=== PATIENT | female | born 1965 ===

== ENCOUNTER 2017-11-26 11:47 | Emergency (ER) | payer OTHER ==
[2017-11-26 11:52] VITALS: BMI 25.7
--- NOTE | 2017-11-26 12:15 | C.PDOC ---
History Of Present Illness 52 y/o female with history of Anemia and hysterectomy presents to ED with c/o suprapubic abdominal pain for 1 week worse on left side associated with 2 days of dysuria. Patient states pain worsens after urination. Patient denies vaginal discharge, vaginal bleeding, fever, chills, nausea, vomiting or any other complaints at this time. Time Seen by Provider: 11/26/17 12:06 Chief Complaint (Nursing): Abdominal Pain History Per: Patient History/Exam Limitations: no limitations Onset/Duration Of Symptoms: Days Current Symptoms Are (Timing): Still Present Past Medical History Reviewed: Historical Data, Nursing Documentation, Vital Signs Vital Signs: Last Vital Signs Temp 98.8 F 11/26/17 12:50 Pulse 80 11/26/17 12:50 Resp 18 11/26/17 12:50 BP 158/82 H 11/26/17 12:50 Pulse Ox 100 11/26/17 12:50 - Medical History PMH: No Chronic Diseases Surgical History: No Surg Hx Family History: States: No Known Family Hx Review Of Systems Constitutional: Negative for: Fever, Chills Gastrointestinal: Positive for: Abdominal Pain. Negative for: Nausea, Vomiting Genitourinary: Positive for: Dysuria. Negative for: Vaginal Discharge, Vaginal Bleeding Musculoskeletal: Negative for: Back Pain Skin: Negative for: Rash Physical Exam - Physical Exam Appears: Non-toxic, No Acute Distress Skin: Warm, Dry, No Rash Head: Atraumatic, Normacephalic Eye(s): bilateral: Normal Inspection Oral Mucosa: Moist Neck: Normal ROM, Supple Cardiovascular: Rhythm Regular Respiratory: Normal Breath Sounds, No Rales, No Rhonchi, No Wheezing Gastrointestinal/Abdominal: Soft, Tenderness (Mild suprapubic), No Guarding, No Rebound Back: No CVA Tenderness, No Paraspinal Tenderness Neurological/Psych: Oriented x3, Normal Speech ED Course And Treatment O2 Sat by Pulse Oximetry: 98 (RA) Pulse Ox Interpretation: Normal Medical Decision Making Medical Decision Making: Plan: * Pyridium * Urine culture Progress: UA shows proteinuria, hematuria, and bacteria. Patient symptomatic thus will treat for UTI and send culture. Recommend follow up in the clinic. Disposition Counseled Patient/Family Regarding: Diagnosis, Need For Followup, Rx Given - Disposition Referrals: Joslyn Goldberg MD [Staff Provider] - [facility] [Outside] Disposition: HOME/ ROUTINE Disposition Time: 12:36 Condition: GOOD Additional Instructions: Usha antibiticos dos veces al da [place] Tylenol o Advil 2-3 pastillas cada 6 horas segn sea necesario Beber callie agua Mina seamus deepti para que lo vean en la clnica para ms evaluacin Prescriptions: Sulfamethoxazole/Trimethoprim [Bactrim DS 800 mg-160 mg] 1 tab PO BID #10 tab Instructions: Urinary Tract Infection, Adult (DC) Forms: [employer] (Puerto Rican) Print Language: TURKMEN - POA Present On Arrival: None - Clinical Impression Clinical Impression: UTI (urinary tract infection) - PA / PSYCHOLOGICAL OPERATIONS SPECIALIST / Resident Statement MD/DO has reviewed & agrees with the documentation as recorded. - Scribe Statement The provider has reviewed the documentation as recorded by the Scribyolanda Brennan All medical record entries made by the Servandoibyolanda were at my direction and personally dictated by me. I have reviewed the chart and agree that the record accurately reflects my personal performance of the history, physical exam, medical decision making, and the department course for this patient. I have also personally directed, reviewed, and agree with the discharge instructions and disposition.
[2017-11-26 12:31] LABS: SQUAMOUS EPITHIAL 22 /hpf (0-5); URINE BACTERIA RARE (<OCC); URINE BILIRUBIN NEGATIVE (NEGATIVE); URINE BLOOD 2+ (NEGATIVE); URINE CLARITY Hazy (Clear); URINE COLOR Yellow (YELLOW); URINE GLUCOSE (UA) NORMAL (Normal); URINE LEUKOCYTE ESTERASE NEG Leu/uL (Negative); URINE PROTEIN 1+ mg/dL (NEGATIVE); URINE UROBILINOGEN NORMAL mg/dL (0.2-1.0)
[2017-11-26 12:51] VITALS: BP 158/82; PULSE 80; RESP 18; TEMP 98.8
[2017-11-26 14:58] VITALS: O2SAT 98
== END 2017-11-26 13:05 | disposition home or self-care (01) ==
LOC: C.ER 11:47
DX: N39.0 Urinary tract infection, site not specified (principal)